=== PATIENT | female | born 1955 | race Caucasian/White ===

== ENCOUNTER 2017-11-12 13:51 | Emergency (ER) | payer MEDICAID ==
[~2017-11-12] VITALS: Ht 149.9 cm; Wt 61.7 kg
[2017-11-12 13:57] VITALS: BP 155/88
[2017-11-12] MEDS ORDERED: AMLO5TAB PO (14:01)
[2017-11-12] MEDS ORDERED: BENA5TAB4 PO (14:01)
[2017-11-12] MEDS ORDERED: ASPI81CT89 PO (14:01)
--- NOTE | 2017-11-12 14:40 | NUR ---
62/F BIB SELF C/O NAUSEA & LBP & LOWER ABD PAIN X 4 DAYS. SKIN IS PINK/WARM/DRY; AAOX4 WITH EVEN AND STEADY GAIT; LUNGS CLEAR BL; HR EVEN AND REGULAR; PT DENIES ANY FEVER, CP, SOB, OR COUGH AT THIS TIME; PATIENT STATES PAIN OF 7/10 AT THIS TIME; PATIENT POSITIONED FOR COMFORT; HOB ELEVATED; BEDRAILS UP X2; BED DOWN. ER MADE AWARE OF PT STATUS. Addendum: 11/12/17 at 1459 by [email or web address] PT STATED DOES NOT WANT PAIN MED AT THIS TIME.
[2017-11-12 14:50] VITALS: BP 155/88
--- NOTE | 2017-11-12 14:50 | NUR ---
Patient discharged with BP `155/88 DENIES HEADACHE AT THIS TIME. Written and verbal after care instructions given and explained. Patient alert, oriented and verbalized understanding of instructions. Ambulatory with steady gait. All questions addressed prior to discharge. ID band removed. Patient advised to follow up with PMD. Rx of PYRIDIUM & CIPRO given. Patient educated on indication of medication including possible reaction and side effects. Opportunity to ask questions provided and answered.
== END 2017-11-12 14:50 | disposition home or self-care (01) ==
LOC: MED 13:51
DX: N39.0 Urinary tract infection, site not specified (principal); H92.02 Otalgia, left ear; I10 Essential (primary) hypertension; Z79.82 Long term (current) use of aspirin; Z79.899 Other long term (current) drug therapy
CPT/HCPCS: 81002; 99283

== ENCOUNTER 2017-12-15 23:12 | Emergency (ER) | payer MEDICAID ==
[~2017-12-15] VITALS: Ht 144.8 cm; Wt 63.6 kg
[~2017-12-15 23:12] MED LIST: AMLO5TAB PO; ASPI81CT89 PO; BENA5TAB4 PO
[2017-12-15 23:20] VITALS: BP 160/78
--- NOTE | 2017-12-15 23:40 | NUR ---
PT TAKEN TO CHAIR A
--- NOTE | 2017-12-15 23:47 | NUR ---
62Y F BIB FAMILY C/O LEFT SHOULDER PAIN FOR 2-3 MONTHS, PT DENIES ANY TRAUMA OR FALL. PT DOES HAVE FULL ROM BUT C/O PAIN WHEN LEFT ARM IS ELEVATED TO SHOULDER LEVEL. PT IS AAOX4. PT DENIES ANY N/V/D, CP, SOB AT THE MOMENT.
[2017-12-15 23:49] VITALS: BP 160/78
--- NOTE | 2017-12-16 00:03 | NUR ---
Dr. Phillips evaluating patient.
--- NOTE | 2017-12-16 00:44 | NUR ---
PT TAKEN TO XRAY
[2017-12-16 00:51] LABS: BASOPHILS # (AUTO) 0.2 K/uL (0.00-0.22); EOSINOPHILS # (AUTO) 0.1 K/uL (0-0.4); EOSINOPHILS % (AUTO) 0.8 % (0.0-4.0); HEMATOCRIT 41.1 % (36-48); HEMOGLOBIN 13.6 g/dL (12.0-16.0); LYMPHOCYTES # (AUTO) 2.4 K/uL (2.5-16.5); LYMPHOCYTES % (AUTO) 25.7 % (20.5-51.1); MEAN CORPUSCULAR HEMOGLOBIN 31 pg (27-31); MEAN CORPUSCULAR HGB CONC 33 g/dL (33-37); MEAN CORPUSCULAR VOLUME 95 fL (80-94); MONOCYTES # (AUTO) 0.6 K/uL (0.8-1.0); MONOCYTES % (AUTO) 6.5 % (1.7-9.3); PLATELET COUNT (AUTO) 245 K/uL (140-450); RED BLOOD CELL COUNT(AUTO) 4.34 MIL/uL (4.20-5.40); RED CELL DISTRIBUTION WIDTH 12.9 % (11.6-13.7); WHITE BLOOD COUNT (AUTO) 9.3 K/uL (4.8-10.8)
[2017-12-16 00:57] LABS: APPEARANCE,URINE CLEAR (CLEAR); BILIRUBIN,URINE NEGATIVE (NEGATIVE); BLOOD, URINE NEGATIVE (NEGATIVE); COLOR,URINE YELLOW (YELLOW); LEUKOCYTE ESTERASE ,URINE NEGATIVE (NEGATIVE); NITRITE, URINE NEGATIVE (NEGATIVE); UGLUCOSE NEGATIVE (NEGATIVE)
[2017-12-16 01:07] LABS: ANION GAP 11.7 (8-16); CARBON DIOXIDE 28.9 mmol/L (21-32); CREATININE 0.8 mg/dL (0.6-1.3); POTASSIUM 3.6 mmol/L (3.5-5.1)
[2017-12-16 01:13] LABS: ALBUMIN 4.1 g/dL (3.4-5.0); TOTAL BILIRUBIN 0.7 mg/dL (0.0-1.0)
--- NOTE | 2017-12-16 01:50 | NUR ---
Patient discharged with v/s stable. Written and verbal after care instructions given and explained. Patient alert, oriented and verbalized understanding of instructions. Ambulatory with steady gait. All questions addressed prior to discharge. ID band removed. Patient advised to follow up with PMD. Rx of FLEXERIL AND IBUPROFEN given. Patient educated on indication of medication including possible reaction and side effects. Opportunity to ask questions provided and answered.
== END 2017-12-16 01:50 | disposition home or self-care (01) ==
LOC: MED 23:12
DX: M79.1 Myalgia (principal); I10 Essential (primary) hypertension; F41.9 Anxiety disorder, unspecified; Z79.82 Long term (current) use of aspirin; Z79.899 Other long term (current) drug therapy
CPT/HCPCS: 36415; 71045; 80053; 81003; 83880; 84484; 85025; 93005; 99285

== ENCOUNTER 2018-04-15 15:45 | Emergency (ER) | payer MEDICAID ==
[~2018-04-15] VITALS: Ht 149.9 cm; Wt 55.3 kg
[2018-04-15 15:46] VITALS: BP 178/80
[2018-04-15] MEDS ORDERED: CLINDAMYCIN 600 MG/4 ML VIAL IM ONE (16:10)
[2018-04-15 16:35] VITALS: BP 168/80
== END 2018-04-15 16:35 | disposition home or self-care (01) ==
LOC: MED 15:45
DX: K05.6 Periodontal disease, unspecified (principal); R68.84 Jaw pain; I10 Essential (primary) hypertension; Z79.899 Other long term (current) drug therapy; Z88.8 Allergy status to other drugs, medicaments and biological substances
CPT/HCPCS: 96372; 99283; J3490